=== PATIENT | female | born 1975 | race Caucasian/White ===

== ENCOUNTER 2022-12-22 05:21 | Emergency (ER) | payer SELFPAY ==
[2022-12-22] MEDS ORDERED: Acetaminophen 500 MG TAB ONE (05:42)
[2022-12-22] MEDS ORDERED: Ketorolac Tromethamine 30 MG/ML VIAL ONE (05:42)
[2022-12-22 05:45] LABS: #Monocytes 0.4 10x3/uL (0.0-1.1); %Basophils 0.5 % (0.0-2.0); %Lymphocytes 18.1 % (18.0-47.0); %Monocytes 9.1 % (0.0-10.0); %Neutrophils 70.8 % (40.0-75.0); Hemoglobin 13.7 g/dL (12.0-15.5); Mean Corpuscular Hemoglobin 27.7 pg (27.0-33.0); Mean Corpuscular Volume 81.4 fl (81.6-98.3); Mean Platelet Volume 10.7 fl (7.4-10.4); Platelet Count 158 10x3/uL (150-450); RBC Distribution Width 12.7 % (11.5-14.5); Red Blood Cell (RBC) Count 4.95 10x6/uL (3.90-5.03); White Blood Cell (WBC) Count 4.2 10x3/uL (3.5-10.5)
[2022-12-22 05:53] LABS: BHCG - Serum Negative (NEGATIVE); Pregs Control Background? CLEAR/WHITE (CLR/WHITE); Pregs Control Bar Appear? YES (CONTROL BAR)
[2022-12-22 06:00] LABS: Anion Gap 16 mmol/L (10-20); BUN (Urea Nitrogen) 8 mg/dL (7.0-18.7); Calc. Creatinine Clearance 0 mL/min (70-130); Carbon Dioxide 20 mmol/L (22-29); Chloride 108 mmol/L (98-107); Potassium 4.4 mmol/L (3.5-5.1); Sodium 140 mmol/L (136-145)
[2022-12-22 06:01] LABS: ALT (SGPT) 30 U/L (8-55); AST (SGOT) 31 U/L (5-34); Alkaline Phosphatase 58 U/L (40-110); Bilirubin, Total 0.7 mg/dL (0.2-1.2); CK (CPK) 46 U/L (29-168); Calcium 9.3 mg/dL (7.8-10.44); Estimated GFR 95; Globulin 3.5 g/dL (2.4-3.5); Glucose 128 mg/dL (70-105); Protein, Total 7.5 g/dL (6.0-8.3)
[2022-12-22 06:15] LABS: Bilirubin Neg (Negative); Blood, Urine 50 (Negative); Clarity Clear (Clear); Glucose, Urine (Dipstick) Normal (Negative); Ketone, Urine Negative (Negative); Leukocyte Negative (Negative); Nitrite Negative (Negative); Protein, Urine (Dipstick) 30 mg/dl (Neg-Trace)
[2022-12-22 06:27] LABS: Bacteria/HPF None Seen HPF (None Seen); Squamous Epithelial 0-3 HPF (0-3); WBC/HPF None Seen HPF (0-3)
== END 2022-12-22 06:34 | disposition home or self-care (01) ==
LOC: CSHERS 05:21
DX: J18.1 Lobar pneumonia, unspecified organism (principal); F50.9 Eating disorder, unspecified; R07.89 Other chest pain
CPT/HCPCS: 36415; 71045; 80053; 81003; 81015; 82550; 83605; 84484; 84703; 85025; 87040; 87086; 93005; 96374; J1885

== ENCOUNTER 2023-07-01 14:20 | Emergency (ER) | payer SELFPAY | END 2023-07-01 15:49 | disposition home or self-care (01) | LOC: CSHERS 14:20 | DX: B34.9 Viral infection, unspecified (principal) | CPT/HCPCS: 71046; 87081; 87430 ==